=== PATIENT | female | born 1995 | race Caucasian/White ===

== ENCOUNTER → 2020-02-20 | Outpatient (CLI) | payer OTHER ==
[2020-02-20 13:18] LABS: Source, Urine Voided
[2020-02-20 17:09] LABS: Appearance, Urine Cloudy (Clear); Bilirubin, Urine Neg (Neg); Blood, Urine 4+ (Neg); Color, Urine Yellow (P-Yellow); Glucose Qualitative, Urine Neg (Neg); Ketones, Urine Neg (Neg); Leukocyte Esterase, Urine 3+ (Neg); Nitrite, Urine Pos (Neg); Protein, Urine 1+ (Neg); Urobilinogen, Urine NORM (Normal)
[2020-02-20 19:06] LABS: Amorphous Heavy (0-Heavy); Bacteria Mod /hpf; Red Blood Cells, Urine Not Seen /hpf (0-2); Squamous Epithelial Cells Few /hpf (Few); Triple Phosphate Crystals Rare /hpf
== END | disposition home or self-care (01) ==
LOC: PLD 11:00 → LAB SHORT 11:00
PROVIDERS: Family Medicine
DX: R30.0 Dysuria (principal)
CPT/HCPCS: 81001; 87086

== ENCOUNTER → 2020-03-09 | Outpatient (CLI) | payer OTHER ==
[2020-03-10 10:33] LABS: Candida species (DNA Probe) Negative (NEGATIVE); G. vaginalis (DNA Probe) Positive (NEGATIVE); T. vaginalis (DNA Probe) Negative (NEGATIVE)
== END | disposition home or self-care (01) ==
LOC: LAB UCHC 18:45 → LAB SHORT 18:45
PROVIDERS: Family Medicine
DX: N89.8 Other specified noninflammatory disorders of vagina (principal); R30.9 Painful micturition, unspecified
CPT/HCPCS: 87077; 87086; 87186; 87480; 87510; 87660

== ENCOUNTER → 2020-04-24 | Outpatient (CLI) | payer OTHER ==
[~2020-04-24] MED LIST: BACL10 PO; CEFP200 PO; FLUO10 PO; FURO20 PO; MIDO5 PO; ONDA4ODT MM; OXYB5 PO; TIZANIDINE HCL PO; TRAZ50 PO
[2020-04-24 15:33] LABS: Appearance, Urine Hazy (Clear); Bilirubin, Urine Neg (Neg); Blood, Urine 2+ (Neg); Color, Urine Yellow (P-Yellow); Glucose Qualitative, Urine Neg (Neg); Ketones, Urine Neg (Neg); Leukocyte Esterase, Urine 3+ (Neg); Nitrite, Urine Pos (Neg); Protein, Urine Neg (Neg); Urobilinogen, Urine NORM (Normal)
[2020-04-24 16:10] LABS: Bacteria Many /hpf; White Blood Cells, Urine 25-50 /hpf (0-5)
[2020-04-24 16:11] LABS: Amorphous Mod (0-Heavy); Squamous Epithelial Cells Mod /hpf (Few); Transitional Epithelial Cells Few /hpf (0-Rare)
== END ==
LOC: OLS 14:47 → LAB SHORT 14:47 → PLD 14:47 → LAB FUT 04-21 18:40
PROVIDERS: Urology
DX: N39.0 Urinary tract infection, site not specified (principal)
CPT/HCPCS: 81001; 87086

== ENCOUNTER → 2020-08-03 | Outpatient (CLI) | payer OTHER | END | disposition home or self-care (01) | LOC: LAB EV 19:19 → LAB SHORT 19:19 | DX: N73.9 Female pelvic inflammatory disease, unspecified (principal) | CPT/HCPCS: 87070; 87205 ==

== ENCOUNTER → 2020-09-06 | Outpatient (CLI) | payer OTHER ==
[2020-09-09 08:09] LABS: HPV 16 Negative (Negative); HPV 18 Negative (Negative); HPV OTHER HR TYPES Negative (Negative)
== END | disposition home or self-care (01) ==
LOC: LAB SHORT 14:11 → LAB 14:11
PROVIDERS: Family Medicine
DX: Z01.419 Encounter for gynecological examination (general) (routine) without abnormal findings (principal)
CPT/HCPCS: 87624; G0145

== ENCOUNTER 2020-11-02 20:24 | Emergency (ER) | payer OTHER | END 2020-11-03 02:14 | disposition home or self-care (01) | LOC: ER 20:24 | DX: N39.0 Urinary tract infection, site not specified (principal); R51.9 Headache, unspecified; M79.10 Myalgia, unspecified site; Z79.899 Other long term (current) drug therapy ==

== ENCOUNTER → 2020-11-30 | Outpatient (CLI) | payer OTHER ==
[2020-12-03 08:11] LABS: COTININE <1.0 ng/mL (.); NICOTINE <1.0 ng/mL (.)
== END | disposition home or self-care (01) ==
LOC: LAB 15:34 → LAB SHORT 15:34 → LAB FUT 05-20 07:10
PROVIDERS: Urology
DX: N39.0 Urinary tract infection, site not specified (principal); N31.9 Neuromuscular dysfunction of bladder, unspecified; N31.0 Uninhibited neuropathic bladder, not elsewhere classified
CPT/HCPCS: 36415; G0480

== ENCOUNTER 2021-02-07 13:17 | Emergency (ER) | payer OTHER ==
[~2021-02-07] VITALS: Ht 160 cm; Wt 65.8 kg
[2021-02-07 15:11] LABS: Source, Urine Catheter
[2021-02-07 15:24] LABS: Appearance, Urine Clear (Clear); Bilirubin, Urine Neg (Neg); Blood, Urine 2+ (Neg); Color, Urine Yellow (P-Yellow); Glucose Qualitative, Urine Neg (Neg); Ketones, Urine Neg (Neg); Leukocyte Esterase, Urine 3+ (Neg); Nitrite, Urine Neg (Neg); Protein, Urine Neg (Neg); Urobilinogen, Urine NORM (Normal)
[2021-02-07 15:52] LABS: Red Blood Cells, Urine 0-2 /hpf (0-2); Squamous Epithelial Cells Few /hpf (Few); White Blood Cells, Urine 25-50 /hpf (0-5)
[2021-02-07 15:54] LABS: Bacteria Mod /hpf
[2021-02-08] MEDS ORDERED: PRAHYD1AE TOP (18:00)
== END 2021-02-07 16:19 | disposition home or self-care (01) ==
LOC: ER 13:17
PROVIDERS: Physician Assistant
DX: T83.098A Other mechanical complication of other urinary catheter, initial encounter (principal); L25.9 Unspecified contact dermatitis, unspecified cause
CPT/HCPCS: 51702; 81001; 87086; 99283-25

== ENCOUNTER 2021-02-08 14:22 | Emergency (ER) | payer OTHER ==
[~2021-02-08] VITALS: Ht 160 cm; Wt 65.8 kg
[2021-02-08] MEDS ORDERED: PRAHYD1AE TOP (18:00)
== END 2021-02-08 19:10 | disposition home or self-care (01) ==
LOC: ER 14:22
DX: K64.4 Residual hemorrhoidal skin tags (principal); N90.89 Other specified noninflammatory disorders of vulva and perineum; Z79.899 Other long term (current) drug therapy
CPT/HCPCS: 99283; A9270

== ENCOUNTER → 2021-02-11 | Outpatient (CLI) | payer OTHER ==
[~2021-02-11] MED LIST changes: +HYDR1TAB94 PO; +PRAHYD1AE TOP
== END ==
LOC: LAB SHORT 16:55 → LAB 16:55
DX: B37.3 Candidiasis of vulva and vagina (principal)
CPT/HCPCS: 87086

== ENCOUNTER 2021-02-13 12:14 | Emergency (ER) | payer OTHER ==
[~2021-02-13] VITALS: Ht 160 cm; Wt 56.7 kg
[~2021-02-13 12:14] MED LIST changes: -HYDR1TAB94 PO
[2021-02-13 13:51] LABS: BASOPHILS ABSOLUTE AUTO 0.03 K/mm3 (0.00-0.23); BASOPHILS PERCENT AUTO 1 % (0-2); EOSINOPHILS ABSOLUTE AUTO 0.05 K/mm3 (0.00-0.68); EOSINOPHILS PERCENT AUTO 1 % (0-6); Hematocrit 35.2 % (33.0-51.0); Hemoglobin 11.9 g/dL (11.5-16.0); IMMATURE GRAN ABSOLUTE AUTO 0.02 K/mm3 (0.00-0.10); IMMATURE GRAN PERCENT AUTO 0 % (0-1); LYMPHOCYTES ABSOLUTE AUTO 1.77 K/mm3 (0.84-5.20); LYMPHOCYTES PERCENT AUTO 31 % (21-46); MONOCYTES PERCENT AUTO 9 % (4-13); Mean Corpuscular HGB 30.8 pg (26.0-34.0); Mean Corpuscular HGB Conc 33.8 g/dL (31.5-36.5); Mean Corpuscular Volume 91 fL (80-100); Mean Platelet Volume 12.8 fL (9.1-12.4); NEUTROPHILS ABSOLUTE AUTO 3.31 K/mm3 (1.96-9.15); NEUTROPHILS PERCENT AUTO 58 % (41-73); Platelet Count 141 K/mm3 (150-400); RDW Coefficient Variation 12.5 % (11.7-14.2); RDW Standard Deviation 41.6 fL (35.1-46.3); Red Blood Cell Count 3.86 M/mm3 (3.80-5.20); White Blood Cell Count 5.68 K/mm3 (4.00-11.30)
[2021-02-13 14:01] LABS: Anion Gap 6 mmol/L (6-16); Blood Urea Nitrogen 9 mg/dL (8-24); Bun/Creatinine Ratio 12.2 (12.0-20.0); CO2, Blood 20 mmol/L (21-32); Calcium, Blood 8.7 mg/dL (8.5-10.1); Chloride, Blood 111 mmol/L (98-108); Creatinine, Blood 0.74 mg/dL (0.40-1.00); Glomerular Filtration Rate >60 (60-); Glucose, Blood 91 mg/dL (70-99); Potassium, Blood 4.2 mmol/L (3.5-5.5); Sodium, Blood 137 mmol/L (136-145)
[2021-02-13] MEDS ORDERED: HYDR1TAB94 PO (15:02)
== END 2021-02-13 15:55 | disposition home or self-care (01) ==
LOC: ER 12:14
PROVIDERS: Emergency Medicine
DX: R31.9 Hematuria, unspecified (principal); R10.9 Unspecified abdominal pain; M79.621 Pain in right upper arm
CPT/HCPCS: 71260; 74177; 80048; 85025; 96374; 96375; 99284-25; A9270; J2405; J3010; Q9967

== ENCOUNTER 2021-09-23 12:44 | Emergency (ER) | payer OTHER ==
[~2021-09-23] VITALS: Ht 170.2 cm; Wt 61.2 kg
[~2021-09-23 12:44] MED LIST changes: +HYDR1TAB94 PO
[2021-09-24] MEDS ORDERED: CEFP200 PO (17:10)
== END 2021-09-23 14:41 | disposition home or self-care (01) ==
LOC: ER 12:44
DX: S01.01XA Laceration without foreign body of scalp, initial encounter (principal); W05.0XXA Fall from non-moving wheelchair, initial encounter; G82.50 Quadriplegia, unspecified; Z23 Encounter for immunization
CPT/HCPCS: 12001; 90471; 90714; 99284-25; A9270

== ENCOUNTER 2022-03-18 17:53 | Emergency (ER) | payer OTHER ==
[~2022-03-18] VITALS: Ht 160 cm; Wt 72.6 kg
[2022-03-18 19:21] LABS: Influenza B, PCR NEGATIVE (NEGATIVE); Resp Syncytial Virus, PCR NEGATIVE (NEGATIVE); SARS-Cov-2 (COVID-19) PCR, MMC NEGATIVE (NEGATIVE)
[2022-03-18 20:33] LABS: Influenza A, PCR POSITIVE (NEGATIVE)
== END 2022-03-18 18:30 | disposition left against medical advice (07) ==
LOC: ER 17:53
PROVIDERS: Emergency Medicine
DX: R05.9 Cough, unspecified (principal); R50.9 Fever, unspecified; Z53.21 Procedure and treatment not carried out due to patient leaving prior to being seen by health care provider
CPT/HCPCS: 0241U

== ENCOUNTER → 2022-03-19 | Outpatient (CLI) | payer OTHER | END | disposition home or self-care (01) | LOC: LAB 16:32 → LAB SHORT 16:32 | DX: Z96.0 Presence of urogenital implants (principal) | CPT/HCPCS: 87086 ==

== ENCOUNTER → 2022-03-22 | Outpatient (CLI) | payer OTHER | END | disposition home or self-care (01) | LOC: LAB 15:39 → LAB SHORT 15:39 | DX: N39.0 Urinary tract infection, site not specified (principal); R33.9 Retention of urine, unspecified | CPT/HCPCS: 87077; 87086; 87186 ==

== ENCOUNTER 2022-09-12 12:49 | Emergency (ER) | payer OTHER ==
[~2022-09-12] VITALS: Ht 160 cm; Wt 70.3 kg
[~2022-09-12 12:49] MED LIST changes: +BISA5EC PO; +MAGCIT300 PO
[2022-09-12] MEDS ORDERED: ZOLOFT10013 PO (13:13)
[2022-09-12] MEDS ORDERED: PANTOPRAZOLE SO40 M2 PO (13:15)
[2022-09-12] MEDS ORDERED: CELEBREX200 MG PO (13:15)
[2022-09-12 14:09] LABS: BASOPHILS ABSOLUTE AUTO 0.03 K/mm3 (0.00-0.23); BASOPHILS PERCENT AUTO 0 % (0-2); EOSINOPHILS ABSOLUTE AUTO 0.16 K/mm3 (0.00-0.68); EOSINOPHILS PERCENT AUTO 2 % (0-6); Hematocrit 36.6 % (33.0-51.0); Hemoglobin 12.7 g/dL (11.5-16.0); IMMATURE GRAN ABSOLUTE AUTO 0.04 K/mm3 (0.00-0.10); IMMATURE GRAN PERCENT AUTO 0 % (0-1); LYMPHOCYTES PERCENT AUTO 16 % (21-46); MONOCYTES ABSOLUTE AUTO 0.76 K/mm3 (0.16-1.47); MONOCYTES PERCENT AUTO 8 % (4-13); Mean Corpuscular HGB 31.7 pg (26.0-34.0); Mean Corpuscular HGB Conc 34.7 g/dL (31.5-36.5); Mean Corpuscular Volume 91 fL (80-100); NEUTROPHILS ABSOLUTE AUTO 6.81 K/mm3 (1.96-9.15); NEUTROPHILS PERCENT AUTO 73 % (41-73); Platelet Count 155 K/mm3 (150-400); RDW Coefficient Variation 12.4 % (11.7-14.2); RDW Standard Deviation 41.6 fL (35.1-46.3); Red Blood Cell Count 4.01 M/mm3 (3.80-5.20)
[2022-09-12 14:24] LABS: Albumin, Blood 3.9 g/dL (3.4-5.0); Albumin/Globulin Ratio 1.2 (0.8-1.8); Bilirubin, Total 0.7 mg/dL (0.1-1.0); Bun/Creatinine Ratio 15.7 (12.0-20.0); Calcium, Blood 9.4 mg/dL (8.5-10.1); Creatinine, Blood 0.57 mg/dL (0.40-1.00); Globulin, Blood 3.3 g/dL (2.2-4.0); Potassium, Blood 4.1 mmol/L (3.5-5.5); Total Protein, Blood 7.2 g/dL (6.4-8.2)
[2022-09-12 15:09] LABS: Mean Platelet Volume 12.9 fL (9.1-12.4)
[2022-09-12 16:39] LABS: Source, Urine Suprapubic Cath
[2022-09-12] MEDS ORDERED: BISA5EC PO (17:06)
[2022-09-12] MEDS ORDERED: BISA10S PR (17:06)
[2022-09-12] MEDS ORDERED: MIRALAX17 GM PO (17:06)
[2022-09-12] MEDS ORDERED: SENNA LAXATIVE8.6 MG PO (17:06)
[2022-09-12 17:10] LABS: Appearance, Urine Hazy (Clear); Bilirubin, Urine Neg (Neg); Blood, Urine 4+ (Neg); Color, Urine Yellow (P-Yellow); Glucose Qualitative, Urine Neg (Neg); Ketones, Urine Neg (Neg); Leukocyte Esterase, Urine 2+ (Neg); Nitrite, Urine Neg (Neg); Protein, Urine 1+ (Neg); Urobilinogen, Urine NORM (Normal)
[2022-09-12 17:31] LABS: Amorphous Light (0-Heavy); Bacteria Rare /hpf; Mucus Light (0-Heavy); Renal Epithelial Rare /hpf (0-Rare); Squamous Epithelial Cells Many /hpf (Few); Transitional Epithelial Cells Few /hpf (0-Rare); Yeast/Fungi Urine Many /hpf
[2022-09-12] MEDS ORDERED: FLUC200 PO (17:43)
[2022-09-12] MEDS ORDERED: ONDA4ODT MM (17:43)
[2022-09-12 18:14] VITALS: BP 112/66
== END 2022-09-12 18:27 | disposition home or self-care (01) ==
LOC: ER 12:49
PROVIDERS: Student in an Organized Health Care Education/Training Program
DX: K56.7 Ileus, unspecified (principal); R11.2 Nausea with vomiting, unspecified; B37.49 Other urogenital candidiasis; T83.020A Displacement of cystostomy catheter, initial encounter; X58.XXXA Exposure to other specified factors, initial encounter
CPT/HCPCS: 74018; 80053; 81001; 81025; 83605; 83735; 85025; A9270; J1790; J1885; J2765; J7030

== ENCOUNTER 2022-09-13 11:03 | Emergency (ER) | payer OTHER ==
[~2022-09-13] VITALS: Ht 160 cm; Wt 70.3 kg
[~2022-09-13 11:03] MED LIST changes: +BISA10S PR; +CELEBREX200 MG PO; +FLUC200 PO; +MIRALAX17 GM PO; +PANTOPRAZOLE SO40 M2 PO; +SENNA LAXATIVE8.6 MG PO; +ZOLOFT10013 PO
[2022-09-13 11:35] VITALS: BP 124/96
== END 2022-09-13 13:35 | disposition home or self-care (01) ==
LOC: ER 11:03
DX: T83.030A Leakage of cystostomy catheter, initial encounter (principal); X58.XXXA Exposure to other specified factors, initial encounter
CPT/HCPCS: 51705; 99283-25; C2627

== ENCOUNTER → 2022-12-04 | Outpatient (CLI) | payer OTHER ==
[2022-12-04 14:30] LABS: Appearance, Urine Cloudy (Clear); Bilirubin, Urine Neg (Neg); Blood, Urine 3+ (Neg); Color, Urine Yellow (P-Yellow); Glucose Qualitative, Urine Neg (Neg); Ketones, Urine Neg (Neg); Leukocyte Esterase, Urine 2+ (Neg); Nitrite, Urine Pos (Neg); Protein, Urine 1+ (Neg); Specific Gravity, Urine 1.015 (1.003-1.022); Urobilinogen, Urine NORM (Normal); pH, Urine 6.5 (5.0-8.0)
[2022-12-04 14:47] LABS: Squamous Epithelial Cells Many /hpf (Few)
[2022-12-04 14:48] LABS: Amorphous Light (0-Heavy); Bacteria Many /hpf; Mucus Mod (0-Heavy)
[2022-12-04 14:49] LABS: Calcium Oxalate Crystals Few /hpf
== END ==
LOC: LAB 10:45 → LAB SHORT 10:45
PROVIDERS: Physician Assistant Medical
DX: N39.0 Urinary tract infection, site not specified (principal)
CPT/HCPCS: 81001; 87077; 87086; 87186

== ENCOUNTER → 2023-04-05 | Outpatient (CLI) | payer OTHER ==
[2023-04-05 18:47] LABS: Appearance, Urine Hazy (Clear); Bilirubin, Urine Neg (Neg); Blood, Urine Neg (Neg); Glucose Qualitative, Urine Neg (Neg); Ketones, Urine Neg (Neg); Leukocyte Esterase, Urine Neg (Neg); Nitrite, Urine Neg (Neg); Protein, Urine Neg (Neg); Urobilinogen, Urine NORM (Normal)
[2023-04-05 18:58] LABS: Color, Urine Pale Yellow (P-Yellow)
[2023-04-05 18:59] LABS: Amorphous Light (0-Heavy); Bacteria Many /hpf; Red Blood Cells, Urine 0-2 /hpf (0-2); Squamous Epithelial Cells Few /hpf (Few)
== END ==
LOC: LAB 18:31 → LAB SHORT 18:31
PROVIDERS: Physician Assistant Medical
DX: N39.0 Urinary tract infection, site not specified (principal)
CPT/HCPCS: 81001; 87077; 87086; 87186

== ENCOUNTER 2023-05-30 21:22 | Inpatient (IN) | payer OTHER ==
[~2023-05-30] VITALS: Ht 160 cm; Wt 63.5 kg
[2023-05-30] MEDS ORDERED: DESVENLAFAXINE100 M3 PO (21:53)
[2023-05-30] MEDS ORDERED: CELEBREX200 MG PO (21:53)
[2023-05-30] MEDS ORDERED: CLONAZEPAM1 MG PO (22:01)
[2023-05-30] MEDS ORDERED: COLACE100 MG PO (22:02)
[2023-05-30] MEDS ORDERED: Robaxin750 MG PO (22:02)
[2023-05-30] MEDS ORDERED: PREG150 PO (22:02)
[2023-05-30] MEDS ORDERED: CLON1 PO (22:03)
[2023-05-30] MEDS ORDERED: TOLTERODINE TART2 MG PO (22:05)
[2023-05-30] MEDS ORDERED: Morphine Sulfate 4 MG/1 ML Injection IV ONE (22:25)
[2023-05-30] MEDS ORDERED: Ondansetron HCl 2 MG / ML 2ML Vial IV ONE (22:25)
[2023-05-30 22:26] LABS: Influenza A, PCR NEGATIVE (NEGATIVE); Influenza B, PCR NEGATIVE (NEGATIVE); Resp Syncytial Virus, PCR NEGATIVE (NEGATIVE); SARS-Cov-2 (COVID-19) PCR, MMC NEGATIVE (NEGATIVE)
[2023-05-30] MEDS ORDERED: NS 1,000 ML IV SCH ×2 (22:40→23:15)
[2023-05-30 22:44] LABS: BASOPHILS ABSOLUTE AUTO 0.04 K/mm3 (0.00-0.23); BASOPHILS PERCENT AUTO 0 % (0-2); EOSINOPHILS ABSOLUTE AUTO 0.03 K/mm3 (0.00-0.68); EOSINOPHILS PERCENT AUTO 0 % (0-6); Hematocrit 32.8 % (33.0-51.0); Hemoglobin 11.4 g/dL (11.5-16.0); IMMATURE GRAN ABSOLUTE AUTO 0.04 K/mm3 (0.00-0.10); IMMATURE GRAN PERCENT AUTO 0 % (0-1); LYMPHOCYTES ABSOLUTE AUTO 1.31 K/mm3 (0.84-5.20); LYMPHOCYTES PERCENT AUTO 14 % (21-46); MONOCYTES ABSOLUTE AUTO 0.72 K/mm3 (0.16-1.47); MONOCYTES PERCENT AUTO 7 % (4-13); Mean Corpuscular HGB 31.4 pg (26.0-34.0); Mean Corpuscular HGB Conc 34.8 g/dL (31.5-36.5); Mean Corpuscular Volume 90 fL (80-100); Mean Platelet Volume 12.2 fL (9.1-12.4); NEUTROPHILS ABSOLUTE AUTO 7.55 K/mm3 (1.96-9.15); NEUTROPHILS PERCENT AUTO 78 % (41-73); Platelet Count 142 K/mm3 (150-400); RDW Coefficient Variation 12.6 % (11.7-14.2); RDW Standard Deviation 41.2 fL (35.1-46.3); Red Blood Cell Count 3.63 M/mm3 (3.80-5.20); White Blood Cell Count 9.69 K/mm3 (4.00-11.30)
[2023-05-30] MEDS ORDERED: CefTRIAXone Sodium 1,000 MG in NS 50 ML IV ONE (22:45)
[2023-05-30] MEDS ORDERED: Azithromycin 500 MG in NS 250 ML IV ONE (22:45)
[2023-05-30 22:46] LABS: Source, Urine Clean Catch
[2023-05-30 22:50] LABS: Bilirubin, Urine Neg (Neg); Blood, Urine 1+ (Neg); Glucose Qualitative, Urine Neg (Neg); Ketones, Urine Neg (Neg); Leukocyte Esterase, Urine 2+ (Neg); Nitrite, Urine Neg (Neg); Protein, Urine 1+ (Neg); Urobilinogen, Urine NORM (Normal); pH, Urine 6.5 (5.0-8.0)
[2023-05-30 22:57] LABS: Appearance, Urine Clear (Clear); Color, Urine Yellow (P-Yellow)
[2023-05-30 22:58] LABS: Bacteria Mod /hpf; Red Blood Cells, Urine 0-2 /hpf (0-2); Squamous Epithelial Cells Mod /hpf (Few)
[2023-05-30 22:59] LABS: Mucus Light (0-Heavy)
[2023-05-30 23:11] LABS: Albumin, Blood 3.8 g/dL (3.4-5.0); Albumin/Globulin Ratio 1.1 (0.8-1.8); Bilirubin, Total 0.4 mg/dL (0.1-1.0); Bun/Creatinine Ratio 18.3 (12.0-20.0); Creatinine, Blood 0.49 mg/dL (0.40-1.00); Globulin, Blood 3.6 g/dL (2.2-4.0); Potassium, Blood 3.4 mmol/L (3.5-5.5); Total Protein, Blood 7.4 g/dL (6.4-8.2)
[2023-05-30] MEDS ORDERED: Ipratropium/Albuterol SulF 2.5-0.5MG/3 ML Amp INH ONE (23:45)
[2023-05-31] VITALS (11 sets, daily range): BP systolic 58–138; BP diastolic 41–96
[2023-05-31] MEDS ORDERED: FLU VACC QS2023-24(6MOS UP)/PF 60 MCG/0.5 ML SYRINGE IM ONE (00:30)
[2023-05-31] MEDS ORDERED: Ondansetron HCl 2 MG / ML 2ML Vial IV PRN (00:30)
[2023-05-31] MEDS ORDERED: Piperacillin/Tazobactam Sod 4.5 GM in NS 100 ML IV ONE (00:40)
[2023-05-31] MEDS ORDERED: NS 1,000 ML IV ONE ×2 (00:40→01:10)
[2023-05-31] MEDS ORDERED: Potassium Chloride 40 MEQ in NS 250 ML IV ONE (00:40)
[2023-05-31] MEDS ORDERED: FentaNYL Citrate 50 MCG/ML 2 ML Injection IV PRN (01:00)
[2023-05-31] MEDS ORDERED: Ipratropium/Albuterol SulF 2.5-0.5MG/3 ML Amp INH PRN (03:50)
[2023-05-31] MEDS ORDERED: Sodium Chloride For Inhalation 7% 4 ML VIAL.NEB INH PRN (04:50)
[2023-05-31 05:16] LABS: BASOPHILS ABSOLUTE AUTO 0.02 K/mm3 (0.00-0.23); BASOPHILS PERCENT AUTO 0 % (0-2); EOSINOPHILS ABSOLUTE AUTO 0.01 K/mm3 (0.00-0.68); EOSINOPHILS PERCENT AUTO 0 % (0-6); Hematocrit 27.8 % (33.0-51.0); Hemoglobin 9.6 g/dL (11.5-16.0); IMMATURE GRAN ABSOLUTE AUTO 0.02 K/mm3 (0.00-0.10); IMMATURE GRAN PERCENT AUTO 0 % (0-1); LYMPHOCYTES ABSOLUTE AUTO 1.32 K/mm3 (0.84-5.20); LYMPHOCYTES PERCENT AUTO 22 % (21-46); MONOCYTES ABSOLUTE AUTO 0.45 K/mm3 (0.16-1.47); MONOCYTES PERCENT AUTO 7 % (4-13); Mean Corpuscular HGB 31.5 pg (26.0-34.0); Mean Corpuscular HGB Conc 34.5 g/dL (31.5-36.5); Mean Corpuscular Volume 91 fL (80-100); Mean Platelet Volume 11.8 fL (9.1-12.4); NEUTROPHILS ABSOLUTE AUTO 4.24 K/mm3 (1.96-9.15); NEUTROPHILS PERCENT AUTO 70 % (41-73); Platelet Count 101 K/mm3 (150-400); RDW Coefficient Variation 12.7 % (11.7-14.2); RDW Standard Deviation 41.9 fL (35.1-46.3); Red Blood Cell Count 3.05 M/mm3 (3.80-5.20); White Blood Cell Count 6.06 K/mm3 (4.00-11.30)
[2023-05-31] MEDS ORDERED: MethylPREDNISolone Sod Succ 125 MG Vial ONE (05:25)
[2023-05-31 05:42] LABS: Albumin, Blood 3.1 g/dL (3.4-5.0); Bilirubin, Total 0.7 mg/dL (0.1-1.0); Bun/Creatinine Ratio 12.6 (12.0-20.0); Calcium, Blood 8.1 mg/dL (8.5-10.1); Creatinine, Blood 0.48 mg/dL (0.40-1.00); Globulin, Blood 3.2 g/dL (2.2-4.0); Potassium, Blood 4.2 mmol/L (3.5-5.5); Total Protein, Blood 6.3 g/dL (6.4-8.2)
--- NOTE | 2023-05-31 06:30 | NUR ---
SHIFT SUMMARY A/O X4. PT IS ABLE TO MAKE NEEDS KNOWN. PT MOTHER STAYED WITH PT FOR A COUPLE HOURS AFTER ADMIT BUT HAS TO WORK THIS AM. AT BASELINE PT IS STRAIGHT CATHED Q4-5 HOURS. THIS RN STARIGHT CATHED PT AT 0600 THIS AM WITH 600 MLS/URINE OUT. URINE IS CLEAR YELLOW WITH NO SEDIMENT PRESENT. EQUIPMENT TO CATH PT WAS BROUGHT FROM PT HOME. SINUS TACHY MOST OF THE NIGHT WITH ALL OTHER VITALS WNL AT THIS TIME. SEE FULL ASSESSMENT FOR FURTHER INFORMATION.
[2023-05-31] MEDS ORDERED: Piperacillin/Tazobactam Sod 4.5 GM in NS 100 ML IV SCH (08:00)
[2023-05-31] MEDS ORDERED: Enoxaparin 40 MG/0.4 ML SYR SC SCH (09:00)
[2023-05-31] MEDS ORDERED: Methocarbamol 500 MG Tab PO SCH (09:00)
[2023-05-31] MEDS ORDERED: MethylPREDNISolone Sod Succ 125 MG Vial IV SCH (09:00)
[2023-05-31] MEDS ORDERED: Celecoxib 100 MG Cap PO SCH (09:00)
[2023-05-31] MEDS ORDERED: Midodrine 5 MG Tab PO SCH (09:00)
[2023-05-31] MEDS ORDERED: Pregabalin 75 MG Cap PO SCH (09:00)
[2023-05-31] MEDS ORDERED: Acetaminophen 325 MG TABLET PO PRN (09:15)
[2023-05-31] MEDS ORDERED: OxyCODONE 5 mg/Acetamin 325 mg TABLET PO PRN (10:15)
--- NOTE | 2023-05-31 10:19 | NUR ---
AM NOTE... ASSUMED CARE OF PT AT 0700, PT IS A&Ox4. SHE WAS ADMITTED FOR UROSEPSIS AND FOUND TO HAVE PNA. PT IS ON 2L NC WHILE SLEEPING AND RA WHILE AWAKE. L/S COARSE T/O WITH LOOSE PRODUCTIVE COUGH. FLUTTER VALVE AND I.S. PROVIDED TO THE PT. PT'S BP IS STABLE WITH MAPS>70. PT HAS UROSTOMY SITE TO THE RLQ WHICH SHE ST. [facility] PRN WITH HER HOME SUPPLIES. CALL LIGHT IN REACH WILL CONTINUE TO MONITOR.
--- NOTE | 2023-05-31 10:35 | NUR ---
PT TRANSFER... REPORT GIVEN TO MED FLOOR RN. ALL OF PT'S BELONGINGS PACKED AND SENT WITH THE PT. PT'S VS STABLE.
[2023-05-31] MEDS ORDERED: ClonazePAM 1 MG Tab PO PRN (15:15)
[2023-05-31] MEDS ORDERED: NS 100 ML IV ONE ×2 (15:26→22:48)
--- NOTE | 2023-05-31 16:41 | NUR ---
PT IS ALERT AND ORIENTED X4. CALM AND COOPERATIVE WITH CARES. ABLE TO MAKE NEEDS KNOWN. IV ANTIBIOTICS CONTINUED ON MED FLOOR. PARAPLEGIC. FINE MOTOR SKILLS ABSENT IN BUE. ABLE FEED AND DRINK HERSELF ONCE MEAL SET UP. TREATED ANXIETY PER EMAR. PT REPORTS PAIN IN CHEST FROM COUGHING. TREATED PAIN PER EMAR. R/A.
[2023-05-31] MEDS ORDERED: OxyCODONE 5 mg/Acetamin 325 mg TABLET PO ONE (21:50)
[2023-05-31] MEDS ORDERED: NS 250 ML IV PRN (22:00)
[2023-06-01 01:57] VITALS: BP 139/93
[2023-06-01 04:58] LABS: BASOPHILS ABSOLUTE AUTO 0.01 K/mm3 (0.00-0.23); BASOPHILS PERCENT AUTO 0 % (0-2); EOSINOPHILS PERCENT AUTO 0 % (0-6); Hematocrit 31.8 % (33.0-51.0); Hemoglobin 10.7 g/dL (11.5-16.0); IMMATURE GRAN ABSOLUTE AUTO 0.06 K/mm3 (0.00-0.10); IMMATURE GRAN PERCENT AUTO 1 % (0-1); LYMPHOCYTES PERCENT AUTO 10 % (21-46); MONOCYTES ABSOLUTE AUTO 0.36 K/mm3 (0.16-1.47); MONOCYTES PERCENT AUTO 5 % (4-13); Mean Corpuscular HGB 30.8 pg (26.0-34.0); Mean Corpuscular HGB Conc 33.6 g/dL (31.5-36.5); Mean Corpuscular Volume 92 fL (80-100); Mean Platelet Volume 12.1 fL (9.1-12.4); NEUTROPHILS ABSOLUTE AUTO 5.74 K/mm3 (1.96-9.15); NEUTROPHILS PERCENT AUTO 84 % (41-73); Platelet Count 132 K/mm3 (150-400); RDW Coefficient Variation 12.9 % (11.7-14.2); RDW Standard Deviation 42.2 fL (35.1-46.3); Red Blood Cell Count 3.47 M/mm3 (3.80-5.20); White Blood Cell Count 6.87 K/mm3 (4.00-11.30)
[2023-06-01 05:39] LABS: Albumin, Blood 3.4 g/dL (3.4-5.0); Albumin/Globulin Ratio 0.9 (0.8-1.8); Bilirubin, Total 0.4 mg/dL (0.1-1.0); Bun/Creatinine Ratio 10.9 (12.0-20.0); Calcium, Blood 9.3 mg/dL (8.5-10.1); Creatinine, Blood 0.46 mg/dL (0.40-1.00); Globulin, Blood 3.8 g/dL (2.2-4.0); Potassium, Blood 4.7 mmol/L (3.5-5.5); Total Protein, Blood 7.2 g/dL (6.4-8.2)
[2023-06-01] MEDS ORDERED: Azithromycin 500 MG in NS 250 ML IV SCH (06:00)
--- NOTE | 2023-06-01 06:05 | NUR ---
SHIFT SUMMARY NOC PT A/O X 4. PLEASANT AND COOPERATIVE WITH CARE. NO ACUTE CHANGES TO REPORT. PT BEING STRAIGHT CATHETERIZED THROUGH SUPRAPUBIC ACCESS SITE RLQ Q4H, SO FAR EACH CATH HAS RESULTED IN >450 ML OF CLEAR YELLOW URINE. PT ON ISOLATION CONTACT PRECAUTIONS FOR CRE IN URINE. PT IS Q2-4H REPOSITION DEPENDING ON PT PREFERENCE. PT USING O2 2L/NC FOR SLEEPING. ON TELEMETRY SINUS RHYTHM IN 80'S. PT BP 130/95 AND BEDTIME DOSE OF MIDODRINE HELD, AM VS BP 139/93. PT HAS SUCTION IN PLACE FOR EXCESS SECRETIONS FROM RLL PNA WHICH IS THICK AND WHITE. PT IS CURRENTLY RESTING WITH BED IN LOWEST POSITION, AND CALL LIGHT WITHIN REACH.
[2023-06-01 07:41] VITALS: BP 130/96
[2023-06-01] MEDS ORDERED: Norco 5-325 Ta1 EACH PO (11:26)
[2023-06-01] MEDS ORDERED: SIME80CH PO (11:27)
--- NOTE | 2023-06-01 13:06 | NUR ---
PLACED CALL TO DR. MCCAIN REGARDING PT'S C/O PAIN. PT STATES PERCOCET DOESN'T MANAGE HER PAIN AND IS REQUESTING SOMETHING DIFFERENT SUCH DILAUDID OR MORPHINE. PT'S MOM PROVIDED A COPY OF PT'S HOME MEDS AND TIMES PT IS USED TO TAKING HER MEDS.
[2023-06-01] MEDS ORDERED: HYDROmorphone HCl/Pf 1MG SYR IV ONE (14:30)
[2023-06-01] MEDS ORDERED: Bisacodyl 10 MG Supp PR PRN (14:35)
[2023-06-01 15:43] VITALS: BP 136/91
[2023-06-01] MEDS ORDERED: ClonazePAM 1 MG Tab PO ONE (18:10)
--- NOTE | 2023-06-01 19:31 | NUR ---
SHIFT SUMMARY A&O X 4, VSS. IS PLEASANT & COOPERATIVE WITH ALL CARE. CAREGIVER ASSISTED PT WITH STRAIGHT CATH AND REPORTED VOLUME DRAINED. PT HAS HER OWN SUPPLIES IN THE ROOM. MEDICATED FOR C/O PAIN & ANXIETY PER EMAR WITH GOOD EFFECT. PT ASSISTED TO HER OWN W/C & WAS ABLE TO GET OUT OF HER ROOM. PT REMAINED ON 3RD FLOOR. IS ON TELE, SR HR 70-80'S. WITH COUGHING HER HR CAN ELEVATE TO 120'S. PLAN IS POSSIBLE DC TOMORROW.
[2023-06-01 19:38] VITALS: BP 134/92
[2023-06-01] MEDS ORDERED: Docusate Sodium 100 MG Cap PO SCH (21:00)
[2023-06-01] MEDS ORDERED: Piperacillin/Tazobactam Sod 4.5 GM ONE (23:31)
[2023-06-02 04:39] VITALS: BP 150/95
--- NOTE | 2023-06-02 06:27 | NUR ---
SHIFT SUMMARY: PT IS ADMITTED FOR SEPTIC SHOCK AND IS A FULL CODE. IS ALERT AND ABLE TO MAKE NEEDS KNOWN. ADLs HAVE BEEN 1-2P DEPENDING ON ACTIVITY. IS ON CONTACT [facility] FOR FOR CRS IN URINE. WAS GIVEN PRN PAIN MANAGEMENT X1. WAS STRAIGHT CATHED THROUGH SUPRAPUBIC ABOUT EVERY 4 HOURS. ELISAPatience REPORTS SINUS AT 83.
[2023-06-02 07:21] VITALS: BP 128/99
[2023-06-02] MEDS ORDERED: Robaxin750 MG PO (11:57)
== END 2023-06-02 13:59 | disposition home or self-care (01) | DRG 871 ==
LOC: ER 21:22 → ICUE 21:23 → ER 21:23 → ERHOLD 21:23 → ICUE 21:23 → MEDS 05-31 00:26 → ICUE 05-31 00:26 → MEDS 05-31 11:41
PROVIDERS: Emergency Medicine; Family Medicine; ADMIT Internal Medicine
DX: A41.01 Sepsis due to Methicillin susceptible Staphylococcus aureus (principal); G82.50 Quadriplegia, unspecified; R65.21 Severe sepsis with septic shock; J15.211 Pneumonia due to Methicillin susceptible Staphylococcus aureus; F33.1 Major depressive disorder, recurrent, moderate; F41.1 Generalized anxiety disorder; F12.20 Cannabis dependence, uncomplicated; G62.9 Polyneuropathy, unspecified; K21.9 Gastro-esophageal reflux disease without esophagitis; Z87.828 Personal history of other (healed) physical injury and trauma; Z11.52 Encounter for screening for COVID-19; Z28.21 Immunization not carried out because of patient refusal
CPT/HCPCS: 0241U; 36415; 71046; 80053; 81001; 83605; 83690; 83880; 84145; 84484; 85025; 85379; 87040; 87070; 87077; 87086; 87186; 87205; 92610; 93005; 93010; 94640; 94664; 94760; 94762; 96365; 96367; 96375; 99285-25; A9270; J0456; J0696; J1170; J1650; J2270; J2405; J2543; J2930; J3010; J3480; J7030; J7050

== ENCOUNTER → 2023-07-20 | Outpatient (CLI) | payer OTHER ==
[~2023-07-20] MED LIST changes: +CLON1 PO; +CLONAZEPAM1 MG PO; +COLACE100 MG PO; +DESVENLAFAXINE100 M3 PO; +DESVENLAFAXINE50 M3 PO; +Keflex250 MG PO; +Norco 5-325 Ta1 EACH PO; +PREG150 PO; +Robaxin750 MG PO; +SIME80CH PO; +TOLTERODINE TART2 MG PO; +ZOLOFT50 MG
== END ==
LOC: LAB 17:17 → LAB SHORT 17:17
DX: N39.0 Urinary tract infection, site not specified (principal)
CPT/HCPCS: 87086

== ENCOUNTER 2023-10-03 15:57 | Emergency (ER) | payer OTHER ==
[~2023-10-03] VITALS: Ht 160 cm; Wt 72.6 kg
[2023-10-03] MEDS ORDERED: Ketorolac Tromethamine 30mg Vial IV ONE (16:25)
[2023-10-03] MEDS ORDERED: Ondansetron HCl 2 MG / ML 2ML Vial IV ONE (16:25)
[2023-10-03] MEDS ORDERED: NS 1,000 ML IV SCH (16:25)
[2023-10-03 16:42] LABS: BASOPHILS ABSOLUTE AUTO 0.06 K/mm3 (0.00-0.23); BASOPHILS PERCENT AUTO 1 % (0-2); EOSINOPHILS ABSOLUTE AUTO 0.04 K/mm3 (0.00-0.68); EOSINOPHILS PERCENT AUTO 1 % (0-6); Hematocrit 35.1 % (33.0-51.0); Hemoglobin 12.2 g/dL (11.5-16.0); IMMATURE GRAN ABSOLUTE AUTO 0.04 K/mm3 (0.00-0.10); IMMATURE GRAN PERCENT AUTO 1 % (0-1); LYMPHOCYTES ABSOLUTE AUTO 2.84 K/mm3 (0.84-5.20); LYMPHOCYTES PERCENT AUTO 36 % (21-46); MONOCYTES ABSOLUTE AUTO 0.58 K/mm3 (0.16-1.47); MONOCYTES PERCENT AUTO 7 % (4-13); Mean Corpuscular HGB Conc 34.8 g/dL (31.5-36.5); Mean Corpuscular Volume 92 fL (80-100); Mean Platelet Volume 12.1 fL (9.1-12.4); NEUTROPHILS ABSOLUTE AUTO 4.44 K/mm3 (1.96-9.15); NEUTROPHILS PERCENT AUTO 55 % (41-73); Platelet Count 173 K/mm3 (150-400); RDW Coefficient Variation 12.1 % (11.7-14.2); RDW Standard Deviation 40.6 fL (35.1-46.3); Red Blood Cell Count 3.81 M/mm3 (3.80-5.20)
[2023-10-03 17:00] LABS: Source, Urine Suprapubic Cath
[2023-10-03 17:04] LABS: Albumin, Blood 3.8 g/dL (3.4-5.0); Albumin/Globulin Ratio 1.2 (0.8-1.8); Bilirubin, Total 0.8 mg/dL (0.1-1.0); Bun/Creatinine Ratio 21.4 (12.0-20.0); Calcium, Blood 8.8 mg/dL (8.5-10.1); Creatinine, Blood 0.65 mg/dL (0.40-1.00); Globulin, Blood 3.3 g/dL (2.2-4.0); Potassium, Blood 3.9 mmol/L (3.5-5.5); Total Protein, Blood 7.1 g/dL (6.4-8.2)
[2023-10-03 17:18] LABS: Appearance, Urine Cloudy (Clear); Bilirubin, Urine Neg (Neg); Blood, Urine 2+ (Neg); Color, Urine Yellow (P-Yellow); Glucose Qualitative, Urine Neg (Neg); Ketones, Urine Neg (Neg); Leukocyte Esterase, Urine 3+ (Neg); Nitrite, Urine Pos (Neg); Protein, Urine 2+ (Neg); Specific Gravity, Urine 1.015 (1.003-1.022); Urobilinogen, Urine NORM (Normal)
[2023-10-03 17:31] LABS: Bacteria Many /hpf; Squamous Epithelial Cells Not Seen /hpf (Few); White Blood Cells, Urine 25-50 /hpf (0-5)
[2023-10-03] MEDS ORDERED: CefTRIAXone Sodium 1,000 MG in NS 100 ML IV ONE (17:40)
[2023-10-03 19:30] VITALS: BP 108/69
[2023-10-05] MEDS ORDERED: CEPH500 PO (17:22)
== END 2023-10-05 19:35 | disposition home or self-care (01) ==
LOC: ER 15:57
PROVIDERS: Physician Assistant
DX: N39.0 Urinary tract infection, site not specified (principal); Z79.899 Other long term (current) drug therapy
CPT/HCPCS: 80053; 81001; 81025; 85025; 87077; 87086; 87186; 96361; 96365; 96375; 99283-25; J0696; J1885; J2405; J7030

== ENCOUNTER 2023-10-09 02:16 | Emergency (ER) | payer OTHER ==
[~2023-10-09] VITALS: Ht 160 cm; Wt 72.6 kg
[~2023-10-09 02:16] MED LIST changes: +CEPH500 PO
[2023-10-09] MEDS ORDERED: NS 1,000 ML IV SCH ×2 (03:05)
[2023-10-09] MEDS ORDERED: CefTRIAXone Sodium 1,000 MG in NS 50 ML IV ONE (03:10)
[2023-10-09 03:25] LABS: BASOPHILS ABSOLUTE AUTO 0.04 K/mm3 (0.00-0.23); BASOPHILS PERCENT AUTO 1 % (0-2); EOSINOPHILS ABSOLUTE AUTO 0.06 K/mm3 (0.00-0.68); EOSINOPHILS PERCENT AUTO 1 % (0-6); Hematocrit 35.6 % (33.0-51.0); Hemoglobin 12.3 g/dL (11.5-16.0); IMMATURE GRAN ABSOLUTE AUTO 0.03 K/mm3 (0.00-0.10); IMMATURE GRAN PERCENT AUTO 1 % (0-1); LYMPHOCYTES ABSOLUTE AUTO 2.08 K/mm3 (0.84-5.20); LYMPHOCYTES PERCENT AUTO 39 % (21-46); MONOCYTES ABSOLUTE AUTO 0.38 K/mm3 (0.16-1.47); MONOCYTES PERCENT AUTO 7 % (4-13); Mean Corpuscular HGB Conc 34.6 g/dL (31.5-36.5); Mean Corpuscular Volume 93 fL (80-100); Mean Platelet Volume 12.1 fL (9.1-12.4); NEUTROPHILS ABSOLUTE AUTO 2.72 K/mm3 (1.96-9.15); NEUTROPHILS PERCENT AUTO 51 % (41-73); Platelet Count 153 K/mm3 (150-400); RDW Coefficient Variation 12.2 % (11.7-14.2); RDW Standard Deviation 41.4 fL (35.1-46.3); Red Blood Cell Count 3.84 M/mm3 (3.80-5.20); White Blood Cell Count 5.31 K/mm3 (4.00-11.30)
[2023-10-09 03:43] LABS: Albumin, Blood 3.7 g/dL (3.4-5.0); Albumin/Globulin Ratio 1.1 (0.8-1.8); Bilirubin, Total 0.5 mg/dL (0.1-1.0); Bun/Creatinine Ratio 16.2 (12.0-20.0); Calcium, Blood 8.9 mg/dL (8.5-10.1); Creatinine, Blood 0.56 mg/dL (0.40-1.00); Globulin, Blood 3.3 g/dL (2.2-4.0); Potassium, Blood 4.2 mmol/L (3.5-5.5)
[2023-10-09] MEDS ORDERED: Ketorolac Tromethamine 30mg Vial IV ONE (04:50)
[2023-10-09 06:18] VITALS: BP 102/63
== END 2023-10-09 06:40 | disposition home or self-care (01) ==
LOC: ER 02:16
PROVIDERS: Emergency Medicine
DX: N39.0 Urinary tract infection, site not specified (principal); Z79.899 Other long term (current) drug therapy
CPT/HCPCS: 80053; 83605; 85025; 87040; 96361; 96365; 96375; 99283-25; J0696; J1885; J7030

== ENCOUNTER → 2023-12-20 | Outpatient (CLI) | payer OTHER ==
[2023-12-20 20:54] LABS: Bacterial Vaginosis PCR Negative (NEGATIVE); Candida glabrata-krusei, PCR NOT DETECTED (NOT DETECT)
[2023-12-20 21:09] LABS: Candida Group, PCR DETECTED (NOT DETECT)
== END ==
LOC: LAB SHORT 17:00 → LAB 17:00
PROVIDERS: Registered Nurse
DX: N39.0 Urinary tract infection, site not specified (principal)
CPT/HCPCS: 87481; 87661; 87801

== ENCOUNTER 2024-01-30 18:24 | Emergency (ER) | payer OTHER ==
[~2024-01-30] VITALS: Ht 160 cm; Wt 77.1 kg
[2024-01-30] MEDS ORDERED: Dicyclomine HCl 20 MG Tab PO ONE (18:45)
[2024-01-30] MEDS ORDERED: Famotidine 10 MG/ML 2ML Vial IV ONE (18:45)
[2024-01-30 19:15] LABS: BASOPHILS ABSOLUTE AUTO 0.05 K/mm3 (0.00-0.23); BASOPHILS PERCENT AUTO 1 % (0-2); EOSINOPHILS ABSOLUTE AUTO 0.04 K/mm3 (0.00-0.68); EOSINOPHILS PERCENT AUTO 1 % (0-6); Hemoglobin 11.3 g/dL (11.5-16.0); IMMATURE GRAN ABSOLUTE AUTO 0.03 K/mm3 (0.00-0.10); IMMATURE GRAN PERCENT AUTO 0 % (0-1); LYMPHOCYTES ABSOLUTE AUTO 2.11 K/mm3 (0.84-5.20); LYMPHOCYTES PERCENT AUTO 30 % (21-46); MONOCYTES PERCENT AUTO 9 % (4-13); Mean Corpuscular HGB 31.9 pg (26.0-34.0); Mean Corpuscular HGB Conc 35.3 g/dL (31.5-36.5); Mean Corpuscular Volume 90 fL (80-100); Mean Platelet Volume 12.4 fL (9.1-12.4); NEUTROPHILS ABSOLUTE AUTO 4.16 K/mm3 (1.96-9.15); NEUTROPHILS PERCENT AUTO 60 % (41-73); Platelet Count 177 K/mm3 (150-400); RDW Coefficient Variation 11.9 % (11.7-14.2); RDW Standard Deviation 39.5 fL (35.1-46.3); Red Blood Cell Count 3.54 M/mm3 (3.80-5.20); White Blood Cell Count 6.99 K/mm3 (4.00-11.30)
[2024-01-30 19:36] LABS: Magnesium, Blood 1.8 mg/dL (1.6-2.4)
[2024-01-30 19:37] LABS: Albumin, Blood 3.8 g/dL (3.4-5.0); Albumin/Globulin Ratio 1.2 (0.8-1.8); Bilirubin, Total 1.1 mg/dL (0.1-1.0); Bun/Creatinine Ratio 20.3 (12.0-20.0); Calcium, Blood 8.7 mg/dL (8.5-10.1); Creatinine, Blood 0.54 mg/dL (0.40-1.00); Globulin, Blood 3.1 g/dL (2.2-4.0); Potassium, Blood 4.1 mmol/L (3.5-5.5); Total Protein, Blood 6.9 g/dL (6.4-8.2)
[2024-01-30 19:58] LABS: Source, Urine Clean Catch
[2024-01-30 20:00] LABS: Appearance, Urine Hazy (Clear); Bilirubin, Urine Neg (Neg); Blood, Urine 3+ (Neg); Color, Urine Yellow (P-Yellow); Glucose Qualitative, Urine Neg (Neg); Ketones, Urine 2+ (Neg); Leukocyte Esterase, Urine 1+ (Neg); Nitrite, Urine Pos (Neg); Protein, Urine 1+ (Neg); Specific Gravity, Urine 1.015 (1.003-1.022); Urobilinogen, Urine NORM (Normal)
[2024-01-30 20:06] LABS: Bacteria Many /hpf; Squamous Epithelial Cells Few /hpf (Few)
[2024-01-30 20:07] LABS: Amorphous Light (0-Heavy)
[2024-01-30] MEDS ORDERED: Cephalexin Monohydrate 500 MG Cap PO ONE (20:40)
[2024-01-30] MEDS ORDERED: ONDA4ODT MM (20:41)
[2024-01-30] MEDS ORDERED: ACET500 PO (20:41)
[2024-01-30] MEDS ORDERED: FAMO20 PO (20:41)
[2024-01-30] MEDS ORDERED: CEPH500 PO (20:41)
[2024-01-30] MEDS ORDERED: METR500 PO (21:12)
[2024-01-30] MEDS ORDERED: DOXY100 PO (21:12)
[2024-01-30 21:44] VITALS: BP 104/85
[2024-01-30 22:22] LABS: Bacterial Vaginosis PCR Negative (NEGATIVE); Candida glabrata-krusei, PCR NOT DETECTED (NOT DETECT)
[2024-01-30 22:26] LABS: Candida Group, PCR DETECTED (NOT DETECT)
[2024-02-02 13:09] LABS: APTIMA MEDIA TYPE MultiTest Swab; C. TRACHOMATIS BY TMA Negative (Negative); N. GONORRHOEAE BY TMA Negative (Negative); SPECIMEN SOURCE Vaginal
== END 2024-01-30 22:00 | disposition home or self-care (01) ==
LOC: ER 18:24
PROVIDERS: Emergency Medicine
DX: N39.0 Urinary tract infection, site not specified (principal); R11.2 Nausea with vomiting, unspecified; N89.8 Other specified noninflammatory disorders of vagina; F12.90 Cannabis use, unspecified, uncomplicated; Z79.899 Other long term (current) drug therapy
CPT/HCPCS: 80053; 81001; 81025; 83690; 83735; 85025; 87481; 87491; 87591; 87661; 87801; 96374; 99284-25; A9270

== ENCOUNTER 2024-03-27 02:30 | Emergency (ER) | payer OTHER ==
[~2024-03-27] VITALS: Ht 160 cm; Wt 63.5 kg
[~2024-03-27 02:30] MED LIST changes: +ACET500 PO; +DOXY100 PO; +FAMO20 PO; +METR500 PO
[2024-03-27] MEDS ORDERED: Ipratropium/Albuterol SulF 2.5-0.5MG/3 ML Amp INH PRN (03:15)
[2024-03-27 03:24] LABS: BASOPHILS ABSOLUTE AUTO 0.04 K/mm3 (0.00-0.23); BASOPHILS PERCENT AUTO 1 % (0-2); EOSINOPHILS ABSOLUTE AUTO 0.07 K/mm3 (0.00-0.68); EOSINOPHILS PERCENT AUTO 1 % (0-6); Hematocrit 33.5 % (33.0-51.0); Hemoglobin 11.6 g/dL (11.5-16.0); IMMATURE GRAN ABSOLUTE AUTO 0.02 K/mm3 (0.00-0.10); IMMATURE GRAN PERCENT AUTO 0 % (0-1); LYMPHOCYTES ABSOLUTE AUTO 2.29 K/mm3 (0.84-5.20); LYMPHOCYTES PERCENT AUTO 27 % (21-46); MONOCYTES ABSOLUTE AUTO 0.65 K/mm3 (0.16-1.47); MONOCYTES PERCENT AUTO 8 % (4-13); Mean Corpuscular HGB 31.8 pg (26.0-34.0); Mean Corpuscular HGB Conc 34.6 g/dL (31.5-36.5); Mean Corpuscular Volume 92 fL (80-100); Mean Platelet Volume 12.5 fL (9.1-12.4); NEUTROPHILS ABSOLUTE AUTO 5.33 K/mm3 (1.96-9.15); NEUTROPHILS PERCENT AUTO 64 % (41-73); Platelet Count 122 K/mm3 (150-400); RDW Coefficient Variation 12.1 % (11.7-14.2); RDW Standard Deviation 41.1 fL (35.1-46.3); Red Blood Cell Count 3.65 M/mm3 (3.80-5.20)
[2024-03-27 03:40] LABS: Albumin, Blood 3.9 g/dL (3.4-5.0); Albumin/Globulin Ratio 1.2 (0.8-1.8); Bun/Creatinine Ratio 17.4 (12.0-20.0); Calcium, Blood 8.9 mg/dL (8.5-10.1); Creatinine, Blood 0.57 mg/dL (0.40-1.00); Globulin, Blood 3.3 g/dL (2.2-4.0); Potassium, Blood 3.8 mmol/L (3.5-5.5); Total Protein, Blood 7.2 g/dL (6.4-8.2)
[2024-03-27] MEDS ORDERED: PredniSONE 20 MG Tab PO ONE (03:45)
[2024-03-27] MEDS ORDERED: NS 1,000 ML IV SCH (03:45)
[2024-03-27] MEDS ORDERED: DELTASONE20 MG PO ×2 (04:05→07:27)
[2024-03-27] MEDS ORDERED: Ketorolac Tromethamine 30mg Vial IV ONE (04:35)
[2024-03-27 04:49] LABS: Source, Urine Straight Cath
[2024-03-27 05:20] LABS: Appearance, Urine Hazy (Clear); Bilirubin, Urine Neg (Neg); Blood, Urine 2+ (Neg); Color, Urine Yellow (P-Yellow); Glucose Qualitative, Urine Neg (Neg); Ketones, Urine 2+ (Neg); Leukocyte Esterase, Urine 2+ (Neg); Nitrite, Urine Pos (Neg); Protein, Urine 1+ (Neg); Urobilinogen, Urine NORM (Normal)
[2024-03-27 05:24] LABS: Amorphous Light (0-Heavy); Bacteria Many /hpf; Red Blood Cells, Urine 0-2 /hpf (0-2); Squamous Epithelial Cells Mod /hpf (Few); White Blood Cells, Urine 25-50 /hpf (0-5)
[2024-03-27] MEDS ORDERED: CEPH500 PO ×2 (05:48→07:27)
[2024-03-27] MEDS ORDERED: CefTRIAXone Sodium 1,000 MG in NS 50 ML IV ONE (05:50)
[2024-03-27 06:30] VITALS: BP 119/78
== END 2024-03-27 07:32 | disposition home or self-care (01) ==
LOC: ER 02:30
PROVIDERS: Emergency Medicine
DX: J40 Bronchitis, not specified as acute or chronic (principal); N39.0 Urinary tract infection, site not specified; Z79.899 Other long term (current) drug therapy
CPT/HCPCS: 71045; 80053; 81001; 84484; 85025; 87077; 87086; 87186; 93005; 93010; 94640; 94664; 96361; 96365; 96375; 99285-25; J0696; J1885; J7030; J7512

== ENCOUNTER → 2024-06-05 | Outpatient (CLI) | payer OTHER ==
[~2024-06-05] MED LIST changes: +DELTASONE20 MG PO
== END ==
LOC: LAB SHORT 17:57 → LAB 17:57
DX: Z12.4 Encounter for screening for malignant neoplasm of cervix (principal)
CPT/HCPCS: G0123

== ENCOUNTER → 2025-02-16 | Outpatient (CLI) | payer OTHER ==
[2025-02-16 14:24] LABS: Source, Urine Voided
[2025-02-16 15:04] LABS: Bilirubin, Urine Neg (Neg); Color, Urine Yellow (P-Yellow); Glucose Qualitative, Urine Neg (Neg); Ketones, Urine Neg (Neg); Leukocyte Esterase, Urine Neg (Neg); Protein, Urine 1+ (Neg); Specific Gravity, Urine 1.010 (1.003-1.022); Urobilinogen, Urine NORM (Normal)
[2025-02-16 16:23] LABS: Red Blood Cells, Urine 0-2 /hpf (0-2)
== END ==
LOC: LAB SHORT 13:45 → LAB 13:45
PROVIDERS: Physician Assistant
DX: R30.0 Dysuria (principal)
CPT/HCPCS: 81001; 87077; 87086; 87186

== ENCOUNTER → 2025-03-13 | Outpatient (CLI) | payer OTHER ==
[2025-03-13 17:41] LABS: Bilirubin, Urine Neg (Neg); Glucose Qualitative, Urine Neg (Neg); Ketones, Urine Neg (Neg); Leukocyte Esterase, Urine Neg (Neg); Protein, Urine Neg (Neg); Specific Gravity, Urine 1.010 (1.003-1.022); Urobilinogen, Urine NORM (Normal)
[2025-03-13 17:46] LABS: Color, Urine Pale Yellow (P-Yellow)
[2025-03-13 17:47] LABS: Red Blood Cells, Urine 0-2 /hpf (0-2)
== END ==
LOC: LAB 17:27 → LAB SHORT 17:27
PROVIDERS: Student in an Organized Health Care Education/Training Program
DX: N39.0 Urinary tract infection, site not specified (principal)
CPT/HCPCS: 81001; 87077; 87086; 87186